=== PATIENT | male | born 1940 | race Caucasian/White ===

== ENCOUNTER 2019-09-16 21:20 | Inpatient (IN) ==
[2019-09-16] MEDS ORDERED: SODIUM CHLORIDE 0.9% 1,000 ML IV STA (23:27)
[2019-09-17 00:31] LABS: INR 1.1
[2019-09-17 00:36] LABS: Ferritin 1005.8 ng/ml (26-388)
[2019-09-17 00:38] LABS: Basophils % 0.4 % (0.0-0.8); Hematocrit 46.1 VOL% (42.0-52.0); Hemoglobin 16.1 GM/DL (14.0-18.0); Immature Granulocytes % 0.2 %; Immature Granulocytes Absolute 0.01 #; Lymphocytes # 1.2 10*3/uL (1.4-4.0); Lymphocytes % 23.7 % (21.2-54.2); Mean Corpuscular HGB Conc 34.9 GM/DL (32-36); Mean Corpuscular Volume 90.9 FL (87-102); Mean Platelet Volume 10.4 FL (9.6-12.0); Monocytes % 15.5 % (1.7-12.7); Neutrophils % 60.2 % (38.7-73.9); Platelet Count 189 T/CUMM (130-400); Red Blood Count 5.07 MC/CUMM (3.8-5.5); Red Cell Distribution Width 11.8 % (9.3-17.3); White Blood Count 4.9 T/CUMM (4-12)
[2019-09-17 00:42] LABS: Albumin 3.5 G/DL (3.4-5.0); Bilirubin,Total 0.8 MG/DL (0.2-1.0); Calcium 8.4 MG/DL (8.5-10.1); Osmolality,Calculated 267.2 MOS/KG (273-304); Thyroid Stimulating Hormone 1.02 uIU/ml (0.358-3.74); Total Protein 7.6 G/DL (6.4-8.3)
[2019-09-17] MEDS ORDERED: LEVOFLOXACIN INJ 750 MG in PREMIX 1 EACH IV STA (00:59)
[2019-09-17 01:55] LABS: Apearance,Urine CLEAR (Clear); Bilirubin,Urine Negative (Negative); Blood, Urine Negative (Negative); Glucose,Urine (UA) Negative (Negative); Ketones,Urine 20 mg/dL (Negative); Mucus,Urine Occasional /LPF (Occasional); Nitrite,Urine Negative (Negative); Protein,Urine 100 MG/DL; RBC,Urine 2 /HPF (0-4); Urine Color Amber (Yellow); Urine Specific Gravity 1.021 (1.001-1.035); WBC,Urine <1 /HPF (0-6)
[2019-09-17 02:00] LABS: Barbiturates Screen,Urine Negative (Negative); Benzodiazepines Screen,Urine Negative (Negative); Cannabinoid Screen,Urine Negative (Negative); Opiate Screen,Urine Negative (Negative); Phencyclidine Screen,Urine Negative (Negative)
[2019-09-17] MEDS ORDERED: IBUPROFEN 600 MG TABLET PO PRN (03:45)
[2019-09-17] MEDS ORDERED: GLUCAGON 1 MG VIAL IM PRN (03:45)
[2019-09-17] MEDS ORDERED: DEXTROSE 50% 25 GM/50 ML VIAL IV PRN (03:45)
[2019-09-17] MEDS ORDERED: ONDANSETRON 4 MG/2 ML VIAL IV PRN (03:45)
[2019-09-17] MEDS ORDERED: ACETAMINOPHEN 325 MG TABLET PO PRN (03:45)
[2019-09-17] MEDS: SODIUM CHLORIDE 0.9% 1,000 ML IV SCH ×4 (04:00→19:17)
[2019-09-17] MEDS: ZINC SULFATE 220 MG CAPSULE PO SCH (09:59)
[2019-09-17] MEDS: DEXAMETHASONE 4 MG TABLET PO SCH ×2 (09:59→20:49)
[2019-09-17] MEDS: POTASSIUM CHLORIDE 20 MEQ TABLET PO SCH ×2 (09:59→20:49)
[2019-09-17] MEDS: PANTOPRAZOLE 40 MG TABLET PO SCH (09:59)
[2019-09-17] MEDS: HYDROXYCHLOROQUINE 200 MG TABLET PO SCH ×2 (09:59→20:48)
[2019-09-17] MEDS: DOCUSATE SODIUM 100 MG CAPSULE PO SCH ×2 (09:59→20:49)
[2019-09-17] MEDS: INSULIN REGULAR 100 UNIT/ML SUBCUT SCH ×3 (11:15→18:15)
[2019-09-18] MEDS: INSULIN REGULAR 100 UNIT/ML SUBCUT SCH ×4 (07:18→18:21)
[2019-09-18] MEDS: DOCUSATE SODIUM 100 MG CAPSULE PO SCH ×2 (08:44→21:04)
[2019-09-18] MEDS: PANTOPRAZOLE 40 MG TABLET PO SCH (08:44)
[2019-09-18] MEDS: ZINC SULFATE 220 MG CAPSULE PO SCH (08:44)
[2019-09-18] MEDS: POTASSIUM CHLORIDE 20 MEQ TABLET PO SCH ×2 (08:44→21:04)
[2019-09-18] MEDS: HYDROXYCHLOROQUINE 200 MG TABLET PO SCH ×2 (08:44→21:05)
[2019-09-18] MEDS: DEXAMETHASONE 4 MG TABLET PO SCH ×2 (08:45→21:05)
[2019-09-18] MEDS: SODIUM CHLORIDE 0.9% 1,000 ML IV SCH ×2 (08:56→17:25)
[2019-09-18] MEDS ORDERED: ENOXAPARIN 40 MG/0.4 ML SYRINGE SUBCUT SCH (09:00)
[2019-09-19] MEDS: INSULIN REGULAR 100 UNIT/ML SUBCUT SCH ×4 (00:35→17:02)
[2019-09-19] MEDS: SODIUM CHLORIDE 0.9% 1,000 ML IV SCH ×5 (01:29→23:52)
[2019-09-19] MEDS: DOCUSATE SODIUM 100 MG CAPSULE PO SCH ×2 (08:31→23:53)
[2019-09-19] MEDS: HYDROXYCHLOROQUINE 200 MG TABLET PO SCH ×2 (08:31→23:53)
[2019-09-19] MEDS: ENOXAPARIN 40 MG/0.4 ML SYRINGE SUBCUT SCH ×2 (08:31→23:53)
[2019-09-19] MEDS: DEXAMETHASONE 4 MG TABLET PO SCH ×2 (08:31→23:54)
[2019-09-19] MEDS: ZINC SULFATE 220 MG CAPSULE PO SCH (08:31)
[2019-09-19] MEDS: PANTOPRAZOLE 40 MG TABLET PO SCH (08:31)
[2019-09-19] MEDS: POTASSIUM CHLORIDE 20 MEQ TABLET PO SCH ×2 (08:31→23:53)
[2019-09-20] MEDS: INSULIN REGULAR 100 UNIT/ML SUBCUT SCH ×4 (00:35→17:38)
[2019-09-20] MEDS: SODIUM CHLORIDE 0.9% 1,000 ML IV SCH ×3 (01:04→21:00)
[2019-09-20] MEDS: ENOXAPARIN 40 MG/0.4 ML SYRINGE SUBCUT SCH ×2 (09:34→21:03)
[2019-09-20] MEDS: ZINC SULFATE 220 MG CAPSULE PO SCH (09:34)
[2019-09-20] MEDS: PANTOPRAZOLE 40 MG TABLET PO SCH (09:34)
[2019-09-20] MEDS: DEXAMETHASONE 4 MG TABLET PO SCH ×2 (09:34→21:01)
[2019-09-20] MEDS: HYDROXYCHLOROQUINE 200 MG TABLET PO SCH ×2 (09:34→21:01)
[2019-09-20] MEDS: POTASSIUM CHLORIDE 20 MEQ TABLET PO SCH ×2 (09:34→21:02)
[2019-09-20] MEDS: DOCUSATE SODIUM 100 MG CAPSULE PO SCH ×2 (09:34→21:02)
[2019-09-21] MEDS: INSULIN REGULAR 100 UNIT/ML SUBCUT SCH ×4 (00:15→18:37)
[2019-09-21] MEDS: SODIUM CHLORIDE 0.9% 1,000 ML IV SCH ×2 (06:01→16:38)
[2019-09-21 07:16] LABS: Calcium 7.9 MG/DL (8.5-10.1); Osmolality,Calculated 279.5 MOS/KG (273-304)
[2019-09-21 07:24] LABS: Basophils % 0.2 % (0.0-0.8); Hematocrit 40.7 VOL% (42.0-52.0); Immature Granulocytes % 0.6 %; Immature Granulocytes Absolute 0.03 #; Lymphocytes # 0.6 10*3/uL (1.4-4.0); Lymphocytes % 10.6 % (21.2-54.2); Mean Corpuscular HGB Conc 34.4 GM/DL (32-36); Mean Corpuscular Volume 92.3 FL (87-102); Mean Platelet Volume 10.6 FL (9.6-12.0); Monocytes % 7.3 % (1.7-12.7); Neutrophils % 81.3 % (38.7-73.9); Platelet Count 197 T/CUMM (130-400); Red Blood Count 4.41 MC/CUMM (3.8-5.5); Red Cell Distribution Width 11.9 % (9.3-17.3); White Blood Count 5.4 T/CUMM (4-12)
[2019-09-21] MEDS: POTASSIUM CHLORIDE 20 MEQ TABLET PO SCH ×2 (09:09→21:49)
[2019-09-21] MEDS: HYDROXYCHLOROQUINE 200 MG TABLET PO SCH ×2 (09:09→21:49)
[2019-09-21] MEDS: ZINC SULFATE 220 MG CAPSULE PO SCH (09:09)
[2019-09-21] MEDS: ENOXAPARIN 40 MG/0.4 ML SYRINGE SUBCUT SCH ×2 (09:09→21:49)
[2019-09-21] MEDS: DOCUSATE SODIUM 100 MG CAPSULE PO SCH ×2 (09:09→21:49)
[2019-09-21] MEDS: PANTOPRAZOLE 40 MG TABLET PO SCH (09:09)
[2019-09-21] MEDS: DEXAMETHASONE 4 MG TABLET PO SCH ×2 (09:09→21:49)
[2019-09-22] MEDS: INSULIN REGULAR 100 UNIT/ML SUBCUT SCH ×4 (00:43→18:17)
[2019-09-22] MEDS: SODIUM CHLORIDE 0.9% 1,000 ML IV SCH ×3 (02:48→19:15)
[2019-09-22] MEDS: DEXAMETHASONE 4 MG TABLET PO SCH ×2 (08:57→21:09)
[2019-09-22] MEDS: ENOXAPARIN 40 MG/0.4 ML SYRINGE SUBCUT SCH ×2 (08:57→21:09)
[2019-09-22] MEDS: ZINC SULFATE 220 MG CAPSULE PO SCH (08:58)
[2019-09-22] MEDS: DOCUSATE SODIUM 100 MG CAPSULE PO SCH ×2 (08:58→21:09)
[2019-09-22] MEDS: HYDROXYCHLOROQUINE 200 MG TABLET PO SCH (08:58)
[2019-09-22] MEDS: POTASSIUM CHLORIDE 20 MEQ TABLET PO SCH ×2 (08:58→21:09)
[2019-09-22] MEDS: PANTOPRAZOLE 40 MG TABLET PO SCH (08:58)
[2019-09-23] MEDS: INSULIN REGULAR 100 UNIT/ML SUBCUT SCH ×2 (00:27→07:00)
[2019-09-23] MEDS: SODIUM CHLORIDE 0.9% 1,000 ML IV SCH ×2 (03:32→05:33)
[2019-09-23 08:02] VITALS: BP 149/92
[2019-09-23] MEDS: DOCUSATE SODIUM 100 MG CAPSULE PO SCH (08:53)
[2019-09-23] MEDS: PANTOPRAZOLE 40 MG TABLET PO SCH (08:54)
[2019-09-23] MEDS: ZINC SULFATE 220 MG CAPSULE PO SCH (08:54)
[2019-09-23] MEDS: DEXAMETHASONE 4 MG TABLET PO SCH (08:54)
[2019-09-23] MEDS: POTASSIUM CHLORIDE 20 MEQ TABLET PO SCH (08:54)
[2019-09-23] MEDS: ENOXAPARIN 40 MG/0.4 ML SYRINGE SUBCUT SCH (08:54)
== END 2019-09-23 10:20 | disposition home or self-care (01) | DRG 177 ==
LOC: N.ED 21:20 → N.EDINP 09-17 01:23 → N.2E 09-17 10:47
PROVIDERS: ADMIT Family Medicine; ATTEND Family Medicine